=== PATIENT | male | born 1995 | race Caucasian/White ===

== ENCOUNTER 2017-04-16 06:27 | Day surgery (SDC) | payer OTHER ==
[~2017-04-16 06:27] MED LIST: Lactated Ringers 1,000 ML IV SCH; Lidocaine 1%/Sod Bicarbonate in NS 8.4% 1 ML Syringe PRN; Sodium Chloride 0.9% 10 ML Syringe FLUSH PRN
--- NOTE | 2017-04-16 07:10 | PCM.OPNOTE ---
- General Post-Op/Procedure Note Date of Surgery/Procedure: 04/16/17 Operative Procedure(s): right knee video arthroscopy with partial medial meniscectomy Pre Op Diagnosis: right knee medial meniscus tear Post-Op Diagnosis: Same Anesthesia Technique: General LMA, Local Primary Surgeon: Navi Tian Anesthesia Provider: Abner Galloway Drug Counselor: Heidi Vanegas in mLs: 5 Complications: None Condition: Good
[2017-04-16] MEDS ORDERED: Bupivacaine 0.25% 30 ML SDV ONE (07:18)
[2017-04-16] MEDS ORDERED: EPINEPHrine 1 MG/ML 30 ML MDV ONE (07:18)
--- NOTE | 2017-04-16 07:22 | PCM.PREANE ---
Preanesthetic Assessment - Procedure Proposed Procedure: R KVA - Anesthesia/Transfusion/Family Hx Anesthesia History: Prior Anesthesia Without Reaction Family History of Anesthesia Reaction: No Transfusion History: No Prior Transfusion(s) Intubation History: Unknown - Review of Systems General: No Symptoms Pulmonary: Other (asthma ) Cardiovascular: No Symptoms Gastrointestinal: No Symptoms Neurological: No Symptoms Other: Reports: None, Depression, Anxiety - Physical Assessment NPO Status Date: 04/15/17 NPO Status Time: 20:00 Pulse: 76 O2 Sat by Pulse Oximetry: 100 Respiratory Rate: 16 Blood Pressure: 141/80 Temperature: 36.7 C Height: 1.75 m Weight: 75.296 kg ASA Class: 2 Mental Status: Alert & Oriented x3 Airway Class: Mallampati = 2 Dentition: Reports: Normal Dentition Thyro-Mental Finger Breadths: 3 Mouth Opening Finger Breadths: 3 ROM/Head Extension: Full Lungs: Clear to Auscultation, Normal Respiratory Effort Cardiovascular: Regular Rate, Regular Rhythm - Allergies Allergies/Adverse Reactions: Allergies Allergy/AdvReac Type Severity Reaction Status Date / Time fluoxetine [From Prozac] Allergy Cannot Verified 04/13/17 16:06 Remember - Blood Blood Available: No Product(s) Available: None - Anesthesia Plan Pre-Op Medication Ordered: None - Acknowledgements Anesthesia Type Planned: General Anesthesia Pt an Appropriate Candidate for the Planned Anesthesia: Yes Alternatives and Risks of Anesthesia Discussed w Pt/Guardian: Yes Pt/Guardian Understands and Agrees with Anesthesia Plan: Yes PreAnesthesia Questionnaire HEENT History: Reports: Impaired Vision Cardiovascular History: Reports: None Respiratory History: Reports: Asthma Gastrointestinal History: Reports: None Genitourinary History: Reports: None MACHINE FEEDER History: Reports: None Musculoskeletal History: Reports: None Neurological History: Reports: None Psychiatric History: Reports: None Endocrine/Metabolic History: Reports: None Hematologic History: Reports: None Immunologic History: Reports: None Oncologic (Cancer) History: Reports: None Dermatologic History: Reports: None - Past Surgical History Head Surgeries/Procedures: Reports: None HEENT Surgical History: Reports: Adenoidectomy, Tonsillectomy Cardiovascular Surgical History: Reports: None Respiratory Surgical History: Reports: None GI Surgical History: Reports: None Female Surgical History: Reports: None Male Surgical History: Reports: None Endocrine Surgical History: Reports: None Neurological Surgical History: Reports: None Musculoskeletal Surgical History: Reports: None Oncologic Surgical History: Reports: None Dermatological Surgical History: Reports: None - SUBSTANCE USE Smoking Status *Q: Never Smoker Second Hand Smoke Exposure: No Recreational Drug Use History: No - HOME MEDS Home Medications: Home Meds Ashwaganda 1 tab PO DAILY 04/13/17 [History] Fexofenadine [Susan] 180 mg PO DAILY 04/13/17 [History] Ginkgo Biloba 60 mg PO DAILY 04/13/17 [History] Montelukast [Singulair] 10 mg PO DAILY 04/13/17 [History] [place] Wort 300 mg PO DAILY 04/13/17 [History] busPIRone HCl [Buspirone HCl] 7.5 mg PO BID 04/13/17 [History] diphenhydrAMINE [Benadryl] 50 mg PO BEDTIME 04/13/17 [History] Acetaminophen/HYDROcodone [Aladdin 325-5 MG] 1 - 2 tab PO Q6H PRN #40 tablet 04/16 [Rx] Aspirin 325 mg PO BID #84 tablet 04/16/17 [Rx] - CURRENT (IN HOUSE) MEDS Current Meds: Current Medications Lactated Ringer's (Ringers, Lactated) 1,000 mls @ 125 mls/hr IV ASDIRECTED ELSIE Stop: 04/16/17 23:00 Lidocaine/Sodium Bicarbonate (Buffered Lidocaine 1% In Ns 8.4%) 0.25 ml .XX ONETIME PRN PRN Reason: Prior to IV Start Stop: 04/16/17 18:00 Sodium Chloride (Saline Flush) 10 ml FLUSH ASDIRECTED PRN PRN Reason: Keep Vein Open Stop: 04/16/17 18:00
[2017-04-16] MEDS ORDERED: Propofol 200 MG/20 ML SDV ONE (07:39)
[2017-04-16] MEDS ORDERED: Midazolam 1 MG/ML 2 ML SDV ONE (07:39)
[2017-04-16] MEDS ORDERED: fentaNYL 250 MCG/5 ML SDV ONE (07:39)
[2017-04-16] MEDS ORDERED: Lidocaine 1% 4 ML ONE (07:42)
[2017-04-16] MEDS ORDERED: Dexamethasone 4 MG/ML 5 ML MDV ONE (07:42)
[2017-04-16] MEDS ORDERED: Ondansetron 4 MG/2 ML SDV ONE (07:42)
[2017-04-16] MEDS ORDERED: ceFAZolin 1 GM Vial ONE (07:48)
[2017-04-16] MEDS ORDERED: HYDROmorphone 0.5 MG/0.5 ML Syringe IVPUSH PRN (09:01)
[2017-04-16] MEDS ORDERED: fentaNYL 100 MCG/2 ML SDV IVPUSH PRN (09:01)
[2017-04-16] MEDS ORDERED: diphenhydrAMINE 50 MG/ML SDV IVPUSH PRN (09:01)
[2017-04-16] MEDS ORDERED: Meperidine PF 50 MG/ML Syringe IVPUSH PRN (09:01)
[2017-04-16] MEDS ORDERED: Ondansetron 4 MG/2 ML SDV IVPUSH PRN (09:01)
[2017-04-16] MEDS ORDERED: Lactated Ringers 1,000 ML ONE (09:29)
--- NOTE | 2017-04-16 09:38 | PCM.POSTAN ---
POST ANESTHESIA ASSESSMENT - MENTAL STATUS Mental Status: Alert, Oriented - VITAL SIGNS Pulse Rate: 100 SaO2: 98 Resp Rate: 14 Blood Pressure: 113/69 Temperature: 36.1 C - RESPIRATORY Respiratory Status: Respiratory Rate WNL, Airway Patent, O2 Saturation Stable - CARDIOVASCULAR CV Status: Pulse Rate WNL, Blood Pressure Stable - GASTROINTESTINAL GI Status: No Symptoms - PAIN Pain Score: 0 - POST OP HYDRATION Hydration Status: Adequate & Stable
--- NOTE | 2017-04-16 10:59 | PCM48HPAN ---
Post Anesthesia Note - EVALUATION WITHIN 48HRS OF ANESTHETIC Vital Signs in Normal Range: Yes Patient Participated in Evaluation: Yes Respiratory Function Stable: Yes Airway Patent: Yes Cardiovascular Function Stable: Yes Hydration Status Stable: Yes Pain Control Satisfactory: Yes Nausea and Vomiting Control Satisfactory: Yes Mental Status Recovered: Yes
[2017-04-16] MEDS ORDERED: Acetaminophen/HYDROcodone 325-5 MG Tab PO ONE (11:15)
--- NOTE | 2017-04-20 11:39 | OR ---
DATE OF OPERATION: 04/16/2017 SURGEON: Navi Tian MD OPERATION PERFORMED: Right knee video arthroscopy with partial medial meniscectomy. PREOPERATIVE DIAGNOSIS: Right knee medial meniscus tear. POSTOPERATIVE DIAGNOSIS: Right knee medial meniscus tear. ANESTHESIA: General LMA with local. ANESTHESIA PROVIDER: Abner Galloway. BUSINESS PROCESS LEAD: Heidi Vanegas PA-C ESTIMATED BLOOD LOSS: 5 mL. COMPLICATIONS: None. CONDITION: Stable. DESCRIPTION OF PROCEDURE: The patient was identified in the preoperative holding area. Proper sites were marked and identified by the surgeon. The patient was taken back to the operating theater, where after adequate anesthesia, the patient was positioned. Our assist was used significantly for positioning and extra set of hands during the case. At this time, the left lower extremity was placed in a well-leg navas and right lower extremity was placed in a nonsterile tourniquet and a C- clamp navas. The right lower extremity was then sterilely prepped and draped in the usual sterile fashion. OR-wide time-out was performed. The patient received 2 grams of IV Ancef. Right lower extremity was then exsanguinated. Tourniquet was insufflated to 250 mmHg. Standard anterolateral portal incision was made. Scope trocar was introduced. There was no chondromalacia noted of the patellofemoral joint. There were no loose or foreign bodies in the medial or lateral gutters. Attention was turned to the medial compartment. Medial portal was created with the use of a spinal needle. At this time, the posterior portion of the medial meniscus was noted to have a complex tear with both a radial and horizontal portion. At this time, it was found to be irreparable. A partial medial meniscectomy of roughly 30% of the posterior horn of the medial meniscus was then completed. It was found to be taken back to a stable rim leaving the majority of the posterior portion of the medial meniscus. At this time, all loose bodies were irrigated off the medial compartment. There were no signs of chondromalacia. The ACL was intact in the notch. Lateral compartment showed no signs of chondromalacia or lateral meniscus tear. At this time, excess saline was drained from the joint. A 3-0 nylon simple suture was used for closure of the skin. Sterile soft dressing was applied. The patient was sent to PACU in a stable condition. MMODAL /[id number]
== END 2017-04-16 11:20 | disposition home or self-care (01) ==
LOC: JD.SDS 06:27
PROVIDERS: ATTEND Orthopaedic Surgery
DX: S83.231A Complex tear of medial meniscus, current injury, right knee, initial encounter (principal); F41.9 Anxiety disorder, unspecified; J45.20 Mild intermittent asthma, uncomplicated; F17.210 Nicotine dependence, cigarettes, uncomplicated; Z88.8 Allergy status to other drugs, medicaments and biological substances; Z79.899 Other long term (current) drug therapy; Z90.89 Acquired absence of other organs
CPT/HCPCS: 29881; A9270; J0171; J0690; J1100; J2250; J2405; J3010; J3490; J7120; 01400; J2704